=== PATIENT | male | born 1995 | race African-American/Black ===

== ENCOUNTER 2019-07-05 03:19 | Emergency (ER) | payer SELFPAY ==
[~2019-07-05] VITALS: Ht 193 cm; Wt 72.7 kg
[2019-07-05 03:26] VITALS: Ht 193 cm; Wt 72.7 kg
[2019-07-05 04:50] VITALS: BP 129/70
== END 2019-07-05 04:50 | disposition home or self-care (01) ==
LOC: D.ER 03:19
DX: H57.11 Ocular pain, right eye (principal); H44.521 Atrophy of globe, right eye; Y04.2XXA Assault by strike against or bumped into by another person, initial encounter; Y93.9 Activity, unspecified; Y92.9 Unspecified place or not applicable